=== PATIENT | female | born 2000 | race Caucasian/White ===

== ENCOUNTER 2024-11-21 16:42 | Emergency (ER) | payer OTHER, SELFPAY ==
[2024-11-21 16:54] VITALS: BP 134/83; PULSE 71; TEMP 36.9; O2SAT 98; BMI 27.4
--- NOTE | 2024-11-21 17:10 | ED.PREGNANC1 ---
HPI - General Chief complaint: Urogenital-Female Stated complaint: LATE PERIOD Time Seen by Provider: 11/21/24 16:43 Source: patient Mode of arrival: walk-in History of Present Illness HPI Narrative: Patient is a 24-year-old female who presents to the emergency department to be tested for . She states for the last several days she has had sharp intermittent pain in the right lower quadrant although she admits that the pain is not severe at this time. She states that she is 2 days late for her menstrual period so she took a home test that was faintly positive and then repeated at this morning and it was negative. She states she called to urgent cares who both told her to come to the emergency department for a blood test . She denies fevers, chills, vomiting. She states she has had irregular menses over the last 2 months. 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 She has not had any vaginal bleeding, vaginal discharge. Related Data Home Medications ?Medication ?Instructions ?Recorded ?Confirmed aripiprazole 5 mg tablet (Abilify) 5 mg PO DAILY 11/21/24 11/21/24 buspirone 10 mg tablet 10 mg PO BID 11/21/24 11/21/24 mirtazapine 15 mg tablet 7.5 mg PO DAILY 11/21/24 11/21/24 venlafaxine 150 mg 150 mg PO DAILY 11/21/24 11/21/24 capsule,extended release 24 hr Allergies Allergy/AdvReac Type Severity Reaction Status Date / Time albuterol Allergy Hives Verified 11/21/24 16:54 Review of Systems ROS Constitutional Denies: fever or chills Ears, nose, mouth, and throat Denies: throat pain or nasal congestion Respiratory Denies: shortness of breath Gastrointestinal Reports: abdominal pain; Denies: nausea or vomiting Musculoskeletal Denies: back pain or neck pain Integumentary/Breast Denies: rash Neurological Denies: numbness in extremities or weakness in extremities Hematologic/Lymphatic Denies: easy bruising or easy bleeding PFSH PFSH Social History Little interest or pleasure in doing things: nearly every day Feeling down, depressed, or hopeless: nearly every day Exam Narrative Exam Narrative: Gen.: Awake, alert, in no distress Head: Normocephalic, atraumatic ENT: Moist mucous membranes Respiratory: No respiratory distress, lungs clear bilaterally Cardio: Regular rate and rhythm Gastrointestinal: Abdomen is soft, nondistended and minimally tender in the right lower quadrant with no McBurney's point tenderness, no guarding or rebound. Negative Rovsing Extremities: Moves extremities equally Psych: Normal mood and affect Neuro: No focal neuro deficit Skin: Warm, dry, intact Constitutional Vital Signs, click to edit/add: Last Vital Signs Temp 98.5 F 11/21/24 16:54 Pulse 71 11/21/24 16:54 Resp 16 11/21/24 16:54 BP 134/83 11/21/24 16:54 Pulse Ox 98 11/21/24 16:54 O2 Del Method Nasal Cannula 11/21/24 16:54 Course Vital Signs Vital signs: Vital Signs Temperature 98.5 F 11/21/24 16:54 Pulse Rate 71 11/21/24 16:54 Respiratory Rate 16 11/21/24 16:54 Blood Pressure 134/83 11/21/24 16:54 Pulse Oximetry 98 11/21/24 16:54 Oxygen Delivery Method Nasal Cannula 11/21/24 16:54 Temperature 98.5 F 11/21/24 16:54 Pulse Rate 71 11/21/24 16:54 Respiratory Rate 16 11/21/24 16:54 Blood Pressure 134/83 11/21/24 16:54 Pulse Oximetry 98 11/21/24 16:54 Oxygen Delivery Method Nasal Cannula 11/21/24 16:54 MDM - OB/Uterine Contractions MDM Narrative Medical decision making narrative: Abdomen is soft and benign in the emergency department. Patient has no complaints of severe pain, no pain out of proportion on exam and no McBurney's point tenderness. Patient and her friend at bedside are insistent that they need a blood test for , quantitative hCG level is less than 1. Labs are otherwise unremarkable and urine specimen is negative. Follow-up with gynecology for further related concerns or issues with menstrual cycle. SHARED APC VISIT, PHYSICIAN ATTESTATION: [id number] I performed a substantive part of the MDM during the patient?s E/M visit. I personally evaluated and examined the patient. I personally made or approved the documented management plan and acknowledge its risk of complications. Medical Records Attestation: I reviewed the patient's medical records. Lab Data Attestation: I reviewed the patient's lab results. Labs: Lab Results 11/21/24 11/21/24 Range/Units 16:45 17:24 WBC 5.3 (4.0-11.0) 10^3/uL RBC 4.52 (4.20-5.40) 10^6/uL Hgb 13.4 (12.0-16.0) g/dL Hct 41.3 (36.0-48.0) % MCV 91.4 (81.0-99.0) fL MCH 29.6 (26.7-34.0) pg MCHC 32.4 (29.9-35.2) g/dL RDW 12.4 (11.0-15.0) % Plt Count 250 (150-450) 10^3/uL MPV 9.8 (9.5-13.5) fL Neut % (Auto) 59.9 (43.0-75.0) % Lymph % (Auto) 31.6 (20.5-60.0) % [place] % (Auto) 8.1 (1.7-12.0) % Eos % (Auto) 0.0 L (0.9-7.0) % Baso % (Auto) 0.2 (0.2-2.0) % Neut # (Auto) 3.2 (1.4-6.5) 10^3/uL Lymph # (Auto) 1.7 (1.2-3.8) 10^3/uL [place] # (Auto) 0.4 (0.3-0.8) 10^3/uL Eos # (Auto) 0.0 (0.0-0.7) 10^3/uL Baso # (Auto) 0.0 (0.0-0.1) 10^3/uL Abs Immat Gran (auto) 0.01 (0.00-0.03) 10^3/uL Imm/Tot Granulo (auto) 0.2 (0.0-0.5) % Sodium 140 (136-145) mmol/L Potassium 3.6 (3.5-5.1) mmol/L Chloride 105 (98-107) mmol/L Carbon Dioxide 29.8 (21.0-32.0) mmol/L Anion Gap 8.8 BUN 8.0 (7.0-18.0) mg/dL Creatinine 0.75 (0.55-1.02) mg/dL Est GFR ( Amer) >60 (>=60 mL/min/1.73m^2) Est GFR (Non-Af Amer) >60 (>=60 mL/min/1.73m^2) BUN/Creatinine Ratio 10.7 Glucose 94 (74-106) mg/dL Calcium 8.8 (8.5-10.1) mg/dL HCG, Quant <1 mIU/mL Urine Color Lt. yellow (YELLOW) Urine Clarity Clear (CLEAR) Urine pH 6.0 (5.0-9.0) Ur Specific [place] 1.020 (1.005-1.025) Urine Protein Negative (NEG/TRACE) mg/dL Urine Glucose (UA) Negative (NEGATIVE) mg/dL Urine Ketones Negative (NEGATIVE) mg/dL Urine Occult Blood Negative (NEGATIVE) Urine Nitrite Negative (NEGATIVE) Urine Bilirubin Negative (NEGATIVE) Urine Urobilinogen 1.0 (0.2-1.0) EU/dL Ur Leukocyte Esterase Negative (NEGATIVE) Urine RBC None seen (0-2) #/HPF Urine WBC None seen (NONE SEEN) #/HPF Ur Squamous Epith Cells Few A (NONE/RARE) #/LPF Urine Crystals None seen (None Seen) #/HPF Urine Bacteria Trace A (NONE SEEN) #/HPF Urine Casts None seen (NONE SEEN) #/LPF Urine Mucus Trace A (NONE SEEN) Ur Culture Indicated? No Discharge Plan Discharge Chief Complaint: Urogenital-Female Clinical Impression: Late menses Patient Disposition: Home, Self-Care Time of Disposition Decision: 18:08 Condition: Good Prescriptions / Home Meds: No Action venlafaxine 150 mg capsule,extended release 24hr 150 mg PO DAILY aripiprazole [Abilify] 5 mg tablet 5 mg PO DAILY buspirone 10 mg tablet 10 mg PO BID mirtazapine 15 mg tablet 7.5 mg PO DAILY Print Language: Polish Additional Instructions: Follow up with a subway repair supervisor for further testing Referrals: Eric Sharif DO [Physician] - 1 week Physician,Non-Staff, MD [Primary Care Provider] - 1 week
[2024-11-21 17:34] LABS: Basophils Percent Auto 0.2 % (0.2-2.0); Hematocrit 41.3 % (36.0-48.0); Hemoglobin 13.4 g/dL (12.0-16.0); Immature Granulocytes Abs Auto 0.01 10^3/uL (0.00-0.03); Immature Granulocytes Pct Auto 0.2 % (0.0-0.5); Lymphocytes Absolute Auto 1.7 10^3/uL (1.2-3.8); Lymphocytes Percent Auto 31.6 % (20.5-60.0); Mean Corpuscular HGB Conc 32.4 g/dL (29.9-35.2); Mean Corpuscular Hemoglobin 29.6 pg (26.7-34.0); Mean Corpuscular Volume 91.4 fL (81.0-99.0); Mean Platelet Volume 9.8 fL (9.5-13.5); Monocytes Absolute Auto 0.4 10^3/uL (0.3-0.8); Monocytes Percent Auto 8.1 % (1.7-12.0); Neutrophils Absolute Auto 3.2 10^3/uL (1.4-6.5); Neutrophils Percent Auto 59.9 % (43.0-75.0); Platelet Count 250 10^3/uL (150-450); Red Blood Count 4.52 10^6/uL (4.20-5.40); Red Cell Distribution Width 12.4 % (11.0-15.0); White Blood Count 5.3 10^3/uL (4.0-11.0)
[2024-11-21 17:35] LABS: Bilirubin Urine NEGATIVE (NEGATIVE); Blood Urine NEGATIVE (NEGATIVE); Clarity Urine CLEAR (CLEAR); Color Urine LT. YELLOW (YELLOW); Glucose Urine UA NEGATIVE (NEGATIVE); Ketones Urine NEGATIVE (NEGATIVE); Leukocyte Esterase Urine NEGATIVE (NEGATIVE); Nitrite Urine NEGATIVE (NEGATIVE); Protein Urine NEGATIVE (NEG/TRACE)
[2024-11-21 17:43] LABS: Bacteria Urine TRACE #/HPF (NONE SEEN); RBC Urine NONE SEEN #/HPF (0-2); WBC Urine NONE SEEN #/HPF (NONE SEEN)
[2024-11-21 17:44] LABS: Cast Seen? NONE SEEN #/LPF (NONE SEEN); Crystals Seen? None Seen #/HPF (None Seen); Mucus Urine TRACE (NONE SEEN); Squamous Epithelial Cell Urine FEW #/LPF (NONE/RARE); Urine Culture Indicated NO
[2024-11-21 17:45] LABS: Anion Gap 8.8; BUN Creatinine Ratio 10.7; Calcium 8.8 mg/dL (8.5-10.1); Carbon Dioxide 29.8 mmol/L (21.0-32.0); Chloride 105 mmol/L (98-107); Estimated GFR (African America >60 (>=60 mL/min/1.73m^2); Estimated GFR (Non-African Ame >60 (>=60 mL/min/1.73m^2); Glucose 94 mg/dL (74-106); Potassium 3.6 mmol/L (3.5-5.1); Sodium 140 mmol/L (136-145)
[2024-11-21 17:58] LABS: HCG Quantitative <1 mIU/mL
[2024-11-21] MEDS: KETOROLAC TROMETHAMINE 10 MG TABLET PO (18:20)
== END 2024-11-21 18:23 | disposition home or self-care (01) ==
PROVIDERS: Physician Assistant; Emergency Provider Emergency Medicine
DX: N92.6 Irregular menstruation, unspecified (principal)
CPT/HCPCS: 36415; 80048; 81001; 84702; 84703; 85025; 99284